=== PATIENT | male | born 1995 | race African-American/Black ===

== ENCOUNTER 2021-04-11 23:51 | Emergency (ER) | payer MEDICAID ==
[~2021-04-11] VITALS: Ht 177.8 cm; Wt 80.0 kg
[2021-04-11 23:58] VITALS: BP 127/78
[2021-04-12] MEDS ORDERED: IBUPROFEN 600MG TABLET PO ONE (00:30)
[2021-04-12] MEDS ORDERED: BACITRACIN ZINC OINT UDPKT TOP ONE (00:30)
[2021-04-12] MEDS ORDERED: LIDOCAINE HCL/PF 1% 10 MG/ML 5ML VIAL INFIL ONE (00:30)
[2021-04-12] MEDS ORDERED: IBUP-2029 MT (01:33)
[2021-04-12] MEDS ORDERED: BO1 TP (01:33)
== END 2021-04-12 02:38 | disposition home or self-care (01) ==
LOC: ER 23:51
DX: S51.812A Laceration without foreign body of left forearm, initial encounter (principal); W25.XXXA Contact with sharp glass, initial encounter; Y93.89 Activity, other specified; Y92.89 Other specified places as the place of occurrence of the external cause; Y99.8 Other external cause status
CPT/HCPCS: 12002; 73090; 99283; J3490

== ENCOUNTER 2021-04-27 01:12 | Emergency (ER) | payer MEDICAID ==
[~2021-04-27] VITALS: Ht 182.9 cm; Wt 73.0 kg
[~2021-04-27 01:12] MED LIST: BO1 TP; IBUP-2029 MT
[2021-04-27 01:23] VITALS: BP 124/77
== END 2021-04-27 02:32 | disposition home or self-care (01) ==
LOC: ER 01:40
DX: S51.812D Laceration without foreign body of left forearm, subsequent encounter (principal); X58.XXXD Exposure to other specified factors, subsequent encounter; Z48.02 Encounter for removal of sutures
CPT/HCPCS: 99281

== ENCOUNTER 2023-02-24 08:47 | Emergency (ER) | payer SELFPAY ==
[~2023-02-24] VITALS: Ht 182.9 cm; Wt 73.0 kg
[2023-02-24 08:57] VITALS: BP 139/86; O2SAT 100
[2023-02-24 09:56] VITALS: PULSE 62; RESP 18; TEMP 98
== END 2023-02-24 09:57 | disposition home or self-care (01) ==
LOC: ER 08:47
DX: R11.10 Vomiting, unspecified (principal)
CPT/HCPCS: 99281

== ENCOUNTER 2024-02-14 05:25 | Inpatient (IN) | payer MEDICAID ==
[~2024-02-14] VITALS: Ht 170.2 cm; Wt 78.9 kg
[2024-02-14 05:33] VITALS: O2SAT 99
[2024-02-14] MEDS: SODIUM CHLORIDE 0.9% 1,000 ML IV ONE (05:45)
[2024-02-14] MEDS: ONDANSETRON HCL 4MG/2ML INJ IV STA (06:34)
[2024-02-14] MEDS: MORPHINE SULFATE 4 MG/ML INJ (FOR IV/IM USE) IV STA ×2 (06:34→10:22)
[2024-02-14 07:19] LABS: BASOPHILS % 0.2 % (0.0-2.0); EOSINOPHILS % 0.5 % (0.0-5.0); HEMATOCRIT. 44.6 % (42.0-52.0); LYMPHOCYTES % 12.4 % (20.0-50.0); MEAN CORPUSCULAR HEMOGLOBIN 31.8 pg (28.0-32.0); MEAN CORPUSCULAR HGB CONC 33.7 g/dL (31.0-37.0); MEAN CORPUSCULAR VOLUME 94.2 fL (80.0-94.0); MEAN PLATELET VOLUME 7.1 fl (7.4-10.4); MONOCYTES % 8.7 % (2.0-8.0); NEUTROPHILS % 78.2 % (40.0-76.0); PLATELET 288 x1000/uL (130-400); RED BLOOD CELL COUNT 4.73 mill/uL (4.7-6.1); RED CELL DISTRIBUTION WIDTH 14.5 % (11.6-14.6); WHITE BLOOD COUNT 8.2 x1000/uL (4.5-11.0)
[2024-02-14 07:24] LABS: CHLORIDE 102 mEq/L (98-107); SODIUM 136 mEq/L (136-145)
[2024-02-14 07:25] LABS: CALCIUM 9.7 mg/dL (8.7-10.4); CARBON DIOXIDE 23 mEq/L (21-32)
[2024-02-14 07:30] LABS: GLUCOSE 115 mg/dL (70-105); UREA NITROGEN BLOOD 6 mg/dL (9-23)
[2024-02-14 07:31] LABS: INR 0.9; PROTHROMBIN TIME 9.9 sec (9.6-11.0)
[2024-02-14 07:32] LABS: ALANINE AMINOTRANSFERASE 136 IU/L (10-49); ALBUMIN 4.5 g/dL (3.2-4.8); ASPARTATE AMINOTRANSFERASE 122 IU/L (<34); BILIRUBIN DIRECT 0.4 mg/dL (<=3.0)
[2024-02-14 07:33] LABS: BILIRUBIN TOTAL 0.9 mg/dL (0.1-1.0); PROTEIN TOTAL 7.3 g/dL (6.0-8.3)
[2024-02-14] MEDS: MAGNESIUM/ALUMINUM HYDROXIDE/SIMETHICONE 30ML UDC PO STA (09:08)
[2024-02-14] MEDS: PANTOPRAZOLE SODIUM 40 MG/VIAL IV STA (09:08)
[2024-02-14] MEDS ORDERED: ONDANSETRON HCL 4MG/2ML INJ IV PRN (12:15)
[2024-02-14] MEDS ORDERED: GUAIFENESIN 200MG/10ML SUGAR FREE UDC PO PRN (12:45)
[2024-02-14] MEDS ORDERED: IPRATROPIUM/ALBUTEROL 0.5-3(2.5)MG/3ML NEB HHN PRN (12:45)
[2024-02-14] MEDS ORDERED: CLONIDINE 0.1MG TABLET PO PRN (12:45)
[2024-02-14 12:46] LABS: AMYLASE 875 IU/L (30-118)
[2024-02-14 12:48] LABS: ETHANOL BLOOD < 10 mg/dL (<10)
[2024-02-14] MEDS: LACTATED RINGERS 1,000 ML IV SCH (13:00)
[2024-02-14] MEDS ORDERED: ACETAMINOPHEN 325MG TABLET PO PRN (13:45)
[2024-02-14] MEDS ORDERED: HYDRALAZINE 20MG/ML VIAL IV PRN (13:45)
[2024-02-14] MEDS: KCL 20MEQ/100ML PREMIX 100 ML IV NR (14:24)
[2024-02-14] MEDS ORDERED: NALOXONE HCL 0.4MG/ML VIAL IV PRN (15:15)
[2024-02-14] MEDS: MAGNESIUM 2 G PREMIX 50 ML IV NR (15:56)
[2024-02-14] MEDS: KETOROLAC 30MG/ML VIAL IV PRN (21:59)
[2024-02-15] VITALS (7 sets, daily range): BP systolic 142–149; BP diastolic 93–98; PULSE 64–79; RESP 17–19; TEMP 36.50292–37.89192; O2SAT 97–100
[2024-02-15] MEDS ORDERED: HYDRALAZINE 10 MG in SODIUM CHLORIDE 0.9% 49.5 ML IV PRN (00:30)
[2024-02-15] MEDS: MORPHINE SULFATE 2 MG/ML INJ (NOT FOR IM USE) IV PRN (00:46)
[2024-02-15 07:03] LABS: HEMATOCRIT. 43.5 % (42.0-52.0); HEMOGLOBIN. 14.6 g/dL (14.0-18.0); LYMPHOCYTES % 8.7 % (20.0-50.0); MEAN CORPUSCULAR HEMOGLOBIN 31.6 pg (28.0-32.0); MEAN CORPUSCULAR HGB CONC 33.6 g/dL (31.0-37.0); MEAN CORPUSCULAR VOLUME 94.1 fL (80.0-94.0); MEAN PLATELET VOLUME 7.8 fl (7.4-10.4); MONOCYTES % 7.7 % (2.0-8.0); NEUTROPHILS % 83.6 % (40.0-76.0); PLATELET 261 x1000/uL (130-400); RED BLOOD CELL COUNT 4.63 mill/uL (4.7-6.1); RED CELL DISTRIBUTION WIDTH 14.7 % (11.6-14.6); TROPONIN I HIGH SENSITIVITY 8 ng/L (3.0-53); WHITE BLOOD COUNT 8.7 x1000/uL (4.5-11.0)
[2024-02-15 07:35] LABS: CLARITY URINE TURBID (CLEAR); COLOR URINE ORANGE (YELLOW); GLUCOSE URINE TRACE (NEGATIVE); KETONES URINE 3+ (NEGATIVE); LEUKOCYTE ESTERASE URINE TRACE (NEGATIVE); NITRITE URINE POSITIVE (NEGATIVE); OCCULT BLOOD URINE NEGATIVE (NEGATIVE); PROTEIN URINE 2+ (NEGATIVE); SPECIFIC GRAVITY URINE 1.039 (1.005-1.030)
[2024-02-15 07:44] LABS: *AMPHETAMINES SCREEN URINE NEGATIVE (NEGATIVE); *BARBITURATES SCREEN URINE NEGATIVE (NEGATIVE); *BENZODIAZEPINES SCREEN URINE NEGATIVE (NEGATIVE); *COCAINE SCREEN URINE NEGATIVE (NEGATIVE); CANNABINOID URINE SCREEN PRESUMPTIVE POSITIVE (NEGATIVE); ECSTASY MDMA SCREEN URINE NEGATIVE (NEGATIVE); METHADONE URINE SCREEN NEGATIVE (NEGATIVE); OPIATES URINE SCREEN PRESUMPTIVE POSITIVE (NEGATIVE); PHENCYCLIDINE URINE SCREEN NEGATIVE (NEGATIVE)
[2024-02-15] MEDS: PANTOPRAZOLE SODIUM 40 MG/VIAL IV SCH ×2 (08:29→20:22)
[2024-02-15 09:17] LABS: AMORPHOUS SEDIMENT URINE 4+ /lpf; BACTERIA URINE 1+; RBC URINE NONE SEEN /hpf (0-2); SQUAMOUS EPITHELIAL CELL URINE NONE SEEN /lpf (RARE/1+); WBC URINE 0-2 /hpf (0-2); YEAST URINE NONE SEEN
[2024-02-15 11:22] LABS: CHLORIDE 102 mEq/L (98-107); POTASSIUM 4.1 mEq/L (3.5-5.1); SODIUM 137 mEq/L (136-145)
[2024-02-15 11:23] LABS: CALCIUM 9.3 mg/dL (8.7-10.4); CARBON DIOXIDE 27 mEq/L (21-32)
[2024-02-15 11:28] LABS: CREATININE 1.1 mg/dL (0.6-1.3); GLUCOSE 107 mg/dL (70-105); UREA NITROGEN BLOOD 8 mg/dL (9-23)
[2024-02-15 11:40] LABS: AMYLASE 1476 IU/L (30-118)
[2024-02-15] MEDS: MAGNESIUM 2 G PREMIX 50 ML IV NR (12:08)
[2024-02-15 12:17] LABS: HEMATOCRIT 43.7 % (42.0-52.0); HEMOGLOBIN 14.6 g/dL (14.0-18.0); MEAN CORPUSCULAR HEMOGLOBIN 31.5 pg (28.0-32.0); MEAN CORPUSCULAR HGB CONC 33.4 g/dL (31.0-37.0); MEAN CORPUSCULAR VOLUME 94.6 fL (80.0-94.0); PLATELET 251 x1000/uL (130-400); RED BLOOD CELL COUNT 4.62 mill/uL (4.7-6.1); RED CELL DISTRIBUTION WIDTH 14.9 % (11.6-14.6); WHITE BLOOD COUNT 9.6 x1000/uL (4.5-11.0)
[2024-02-15] MEDS: CEFTRIAXONE 1GM/50ML 50 ML IV SCH (13:25)
[2024-02-15] MEDS: METRONIDAZOLE 500 MG PREMIX 100 ML IV SCH (14:19)
[2024-02-15] MEDS: ACETAMINOPHEN 650MG/20.3ML UDC PO PRN (16:14)
[2024-02-16] VITALS: BP 154/95; PULSE 67; RESP 19; TEMP 36.3918; TEMP 36.39180; O2SAT 97
[2024-02-16 06:42] LABS: HEMATOCRIT 40.9 % (42.0-52.0); HEMOGLOBIN 13.8 g/dL (14.0-18.0); MEAN CORPUSCULAR HEMOGLOBIN 31.9 pg (28.0-32.0); MEAN CORPUSCULAR HGB CONC 33.9 g/dL (31.0-37.0); MEAN CORPUSCULAR VOLUME 94.1 fL (80.0-94.0); PLATELET 235 x1000/uL (130-400); RED BLOOD CELL COUNT 4.34 mill/uL (4.7-6.1); RED CELL DISTRIBUTION WIDTH 14.5 % (11.6-14.6); WHITE BLOOD COUNT 10.2 x1000/uL (4.5-11.0)
[2024-02-16 07:13] LABS: CHLORIDE 102 mEq/L (98-107); POTASSIUM 3.4 mEq/L (3.5-5.1); SODIUM 136 mEq/L (136-145)
[2024-02-16 07:14] LABS: CALCIUM 8.8 mg/dL (8.7-10.4); CARBON DIOXIDE 26 mEq/L (21-32)
[2024-02-16 07:19] LABS: CREATININE 0.9 mg/dL (0.6-1.3); GLUCOSE 87 mg/dL (70-105); UREA NITROGEN BLOOD 8 mg/dL (9-23)
[2024-02-16] MEDS: MAGNESIUM/ALUMINUM HYDROXIDE/SIMETHICONE 30ML UDC PO PRN (08:27)
[2024-02-16] MEDS: POTASSIUM CHLORIDE 20MEQ TABLET SR PO NR (11:55)
[2024-02-16] MEDS: AMLODIPINE 5MG TABLET PO SCH (12:03)
[2024-02-16] MEDS: FOLIC ACID 1 MG, THIAMINE HCL 100 MG, MVI, ADULT NO.1 10 ML in DEXTROSE 5% WATER 1,000 ML IV ONE (15:24)
[2024-02-16 15:36] VITALS: BP 141/96; PULSE 80; RESP 17
== END 2024-02-16 21:25 | disposition home or self-care (01) | DRG 282 ==
LOC: ER 05:35 → 5WST 11:00 → EDBEDREQ 11:02 → EDBEDREQTM 11:02 → 6EST 02-15 00:08
PROVIDERS: ADMIT Preventive Medicine Clinical Informatics; ATTEND Preventive Medicine Clinical Informatics
DX: K85.20 Alcohol induced acute pancreatitis without necrosis or infection (principal); E87.1 Hypo-osmolality and hyponatremia; E87.6 Hypokalemia; E83.42 Hypomagnesemia; F10.10 Alcohol abuse, uncomplicated; Y90.9 Presence of alcohol in blood, level not specified; K92.1 Melena; Z79.899 Other long term (current) drug therapy; Z71.41 Alcohol abuse counseling and surveillance of alcoholic
CPT/HCPCS: 36415; 74177; 80048; 80061; 80076; 80305; 80320; 81003; 82150; 83735; 84484; 85025; 85027; 99285; C1893; J0696; J1885; J2270; J2405; J2470; J3411; J3475; J3480; J3490; J7030; J7070; G0480

== ENCOUNTER 2024-11-25 14:43 | Emergency (ER) | payer MEDICAID ==
[~2024-11-25] VITALS: Ht 182.9 cm; Wt 91.0 kg
[2024-11-25 14:49] VITALS: O2SAT 98
[2024-11-25 15:36] LABS: BASOPHILS % 0.4 % (0.0-2.0); EOSINOPHILS % 0.6 % (0.0-5.0); HEMATOCRIT. 44.4 % (42.0-52.0); HEMOGLOBIN. 15.3 g/dL (14.0-18.0); LYMPHOCYTES % 16.4 % (20.0-50.0); MEAN PLATELET VOLUME 7.6 fl (7.4-10.4); MONOCYTES % 7.5 % (2.0-8.0); NEUTROPHILS % 75.1 % (40.0-76.0); PLATELET 295 x1000/uL (130-400); RED BLOOD CELL COUNT 4.83 mill/uL (4.7-6.1); RED CELL DISTRIBUTION WIDTH 12.9 % (11.6-14.6)
[2024-11-25] MEDS: ONDANSETRON 4MG ODT PO ONE (15:45)
[2024-11-25 15:50] LABS: CREATININE 1.1 mg/dL (0.6-1.3)
[2024-11-25 15:51] LABS: UREA NITROGEN BLOOD 8 mg/dL (9-23)
[2024-11-25 15:52] LABS: ASPARTATE AMINOTRANSFERASE 20 IU/L (<34)
[2024-11-25 15:53] LABS: BILIRUBIN DIRECT 0.3 mg/dL (<=3.0); BILIRUBIN TOTAL 1.0 mg/dL (0.1-1.0); PROTEIN TOTAL 7.6 g/dL (6.0-8.3)
[2024-11-25] MEDS: HYDROCODONE/ACETAMINOPHEN 7.5/325MG TABLET PO SCH (17:24)
[2024-11-25] MEDS ORDERED: HYDR-4005 MT (18:23)
[2024-11-25] MEDS ORDERED: ONDA-239 PO (18:23)
[2024-11-25 18:46] VITALS: BP 156/98; PULSE 71; RESP 18; TEMP 36.8; O2SAT 100
== END 2024-11-25 18:51 | disposition home or self-care (01) ==
LOC: ER 14:43
DX: K85.90 Acute pancreatitis without necrosis or infection, unspecified (principal); R10.13 Epigastric pain; Z79.899 Other long term (current) drug therapy
CPT/HCPCS: 80076; 80048; 83690; 85025; 36415; 74176; 99284; Q0162; Z7610

== ENCOUNTER 2025-04-09 20:07 | Inpatient (IN) | payer MEDICAID, OTHER ==
[~2025-04-09] VITALS: Ht 175.3 cm; Wt 69.9 kg
[~2025-04-09 20:07] MED LIST changes: +HYDR-4005 MT; +IBUP-1455 MT; -IBUP-2029 MT; +ONDA-239 PO
[2025-04-09 20:09] VITALS: O2SAT 100
[2025-04-09 21:37] LABS: BASOPHILS % 0.2 % (0.0-2.0); EOSINOPHILS % 0.1 % (0.0-5.0); HEMATOCRIT. 41.5 % (42.0-52.0); HEMOGLOBIN. 13.9 g/dL (14.0-18.0); LYMPHOCYTES % 10.1 % (20.0-50.0); MEAN PLATELET VOLUME 8.0 fl (7.4-10.4); MONOCYTES % 8.5 % (2.0-8.0); NEUTROPHILS % 81.1 % (40.0-76.0); PLATELET 285 x1000/uL (130-400); RED BLOOD CELL COUNT 4.50 mill/uL (4.7-6.1); RED CELL DISTRIBUTION WIDTH 12.8 % (11.6-14.6)
[2025-04-09] MEDS: PANTOPRAZOLE SODIUM 40 MG/VIAL IV ONE (21:49)
[2025-04-09] MEDS: ONDANSETRON HCL 4MG/2ML INJ IV ONE (21:49)
[2025-04-09] MEDS: MORPHINE SULFATE 4 MG/ML INJ (FOR IV/IM USE) IV ONE (21:49)
[2025-04-09] MEDS: SODIUM CHLORIDE 0.9% 1,000 ML IV ONE (21:49)
[2025-04-09 21:55] LABS: CREATININE 1.0 mg/dL (0.6-1.3); UREA NITROGEN BLOOD 6 mg/dL (9-23)
[2025-04-09 21:56] LABS: ASPARTATE AMINOTRANSFERASE 23 IU/L (<34)
[2025-04-09 21:57] LABS: BILIRUBIN DIRECT 0.4 mg/dL (<=3.0); BILIRUBIN TOTAL 1.1 mg/dL (0.1-1.0); PROTEIN TOTAL 7.0 g/dL (6.0-8.3)
[2025-04-09 23:45] VITALS: BP 158/64; PULSE 86; RESP 18; TEMP 36.8628
[2025-04-09] MEDS ORDERED: HYDRALAZINE 10 MG in SODIUM CHLORIDE 0.9% 49.5 ML IV PRN (23:45)
[2025-04-09] MEDS ORDERED: NALOXONE HCL 0.4MG/ML VIAL IV PRN (23:45)
[2025-04-10] MEDS ORDERED: HYDRALAZINE 20MG/ML VIAL IV PRN
[2025-04-10] MEDS: ZOLPIDEM TARTRATE 5MG TABLET PO PRN (00:23)
[2025-04-10] MEDS: ONDANSETRON HCL 4MG/2ML INJ IV PRN (00:23)
[2025-04-10] MEDS: HYDROCODONE/ACETAMINOPHEN 10/325MG TABLET PO PRN (00:24)
[2025-04-10 04:00] VITALS: BP 118/56; PULSE 88; RESP 18; TEMP 36.6; O2SAT 98
[2025-04-10 05:28] LABS: BASOPHILS % 0.2 % (0.0-2.0); EOSINOPHILS % 0.1 % (0.0-5.0); HEMATOCRIT. 41.6 % (42.0-52.0); HEMOGLOBIN. 14.0 g/dL (14.0-18.0); LYMPHOCYTES % 12.4 % (20.0-50.0); MEAN PLATELET VOLUME 8.4 fl (7.4-10.4); MONOCYTES % 10.1 % (2.0-8.0); NEUTROPHILS % 77.2 % (40.0-76.0); PLATELET 280 x1000/uL (130-400); RED BLOOD CELL COUNT 4.51 mill/uL (4.7-6.1); RED CELL DISTRIBUTION WIDTH 12.9 % (11.6-14.6)
[2025-04-10 05:41] LABS: LDL CHOLESTEROL 66.0 mg/dL (5-100); TRIGLYCERIDE 108.0 mg/dL (0-150)
[2025-04-10 08:00] VITALS: BP 135/86; PULSE 53; RESP 18; TEMP 36.1; O2SAT 99
[2025-04-10] MEDS: PANTOPRAZOLE SODIUM 40 MG/VIAL IV SCH (09:22)
[2025-04-10] MEDS: KETOROLAC 30MG/ML VIAL IV PRN (11:43)
[2025-04-10 12:00] VITALS: BP 141/101; PULSE 77; RESP 19; TEMP 36.2; O2SAT 100
[2025-04-10 16:00] VITALS: BP 135/82; PULSE 50; RESP 18; TEMP 36.2; O2SAT 100
[2025-04-10 20:00] VITALS: BP 140/93; PULSE 58; RESP 18; TEMP 36.6; O2SAT 98
[2025-04-10] MEDS: HYDROCODONE/ACETAMINOPHEN 5/325MG TABLET PO PRN (20:32)
[2025-04-11] VITALS: BP 143/104; PULSE 63; RESP 18; TEMP 36.2; O2SAT 100
[2025-04-11 02:15] VITALS: BP 143/104; PULSE 63; RESP 18
== END 2025-04-11 05:10 | disposition left against medical advice (07) | DRG 392 ==
LOC: ER 20:07 → 6EST 22:15 → EDBEDREQTM 22:25 → EDBEDREQ 22:25 → ENRESERV 23:01
PROVIDERS: ADMIT Internal Medicine; ATTEND Internal Medicine
DX: R10.13 Epigastric pain (principal); D72.829 Elevated white blood cell count, unspecified; R11.2 Nausea with vomiting, unspecified; Z53.29 Procedure and treatment not carried out because of patient's decision for other reasons
CPT/HCPCS: 36415; 80048; 80061; 80076; 82150; 83735; 85025; 86850; 86900; 93005; 96365; 96375; 99285; J1885; J2270; J2405; J2470; J7030